=== PATIENT | male | born 1955 | race Caucasian/White ===

== ENCOUNTER 2018-08-12 15:27 | Inpatient (IN) | payer SELFPAY ==
[2018-08-12] MEDS ORDERED: Metoprolol Tartrate IV* 1 MG/ML 5 ML VIAL IV ONE (16:12)
[2018-08-12 16:54] LABS: ABS Basophils 0 10^3/ul (0-0.2); ABS Eosinophils 0.8 10^3/ul (0-0.6); ABS Lymphocytes 3.6 10^3/ul (1.0-4.8); ABS Neutrophils 8.9 10^3/ul (1.5-7.7); ABS Nucleated RBC 0 10^3/ul; Eosinophil % 5.8 %; Hematocrit 50 % (42-52); Hemoglobin 17.1 g/dl (14.0-18.0); Lymphocyte % 24.9 %; Mean Corpuscular HGB Conc 35 g/dl (31-36); Mean Corpuscular Hemoglobin 32 pg (27-31); Mean Corpuscular Volume 92 fL (80-94); Mean Platelet Volume 9.5 fL (7.4-10.4); Nucleated Red Blood Cells % 0.2; Platelet Count 405 10^3/ul (150-450); Red Blood Count 5.39 10^6/ul (4.00-5.40); Red Cell Distribution Width 14 % (10.5-15); White Blood Count 14.3 10^3/ul (3.5-10.8)
[2018-08-12 17:08] LABS: EGFR Non-African American 56.6 (>60)
[2018-08-12] MEDS ORDERED: Iodixanol* (CONTRAST) 320 MG/ML 100 ML SDV IV ONE (17:30)
--- NOTE | 2018-08-12 18:35 | ED ---
Hypertension - HPI Summary HPI Summary: A 62 year old male presents to [facility] with a chief complaint of high blood pressure since 08:00 08/12/18. 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 He states that he has not seen a Doctor in years but made an appointment at [facility] where his BP and EKG were abnormal and so he was referred here. He also c/o CP which he describes as tightness and SOB. His CP has been intermittent for a year. Pt was diagnosed with IBS and claims that his pain is alleviated with BMs. He denies back pain, lightheadedness, Fever, Chills, Erythema (eyes), Sore throat, Cough, Abdominal pain, Vomiting, Nausea, Dysuria, Hematuria, Myalgia, Edema, Rash and Dizziness. The patient denies a Hx of [place], cardiac disease or DM. - History of Current Complaint Chief Complaint: EDGeneral Stated Complaint: HIGH BLOOD PRESSURE Time Seen by Provider: 08/12/18 16:06 Hx Obtained From: Patient Onset/Duration: Started Hours Ago, Still Present Timing: Lasting Hours Associated Signs & Symptoms: Chest Pain, SOB - Allergies/Home Medications Allergies/Adverse Reactions: Allergies Allergy/AdvReac Type Severity Reaction Status Date / Time No Known Allergies Allergy Verified 01/14/15 12:34 Home Medications: Home Medications NK [No Home Medications Reported] 08/12/18 [History Confirmed 08/12/18] PMH/Surg Hx/FS Hx/Imm Hx Endocrine/Hematology History: Denies: Hx Diabetes Cardiovascular History: Reports: Hx Hypertension History: Denies: Hx Renal Disease Infectious Disease History: No Infectious Disease History: Denies: Traveled Outside the [place] in Last 30 Days - Family History Known Family History: Negative: Cardiac Disease, Diabetes - Social History Alcohol Use: None Substance Use Type: Reports: None Smoking Status (MU): Never Smoked Tobacco Review of Systems Negative: Fever, Chills Negative: Erythema Negative: Sore Throat Positive: Chest Pain Positive: Shortness Of Breath. Negative: Cough Negative: Abdominal Pain, Vomiting, Nausea Negative: hematuria Negative: Myalgia - back pain, Edema Negative: Rash Neurological: Negative - lightheadedness, dizziness All Other Systems Reviewed And Are Negative: Yes Physical Exam - Summary Physical Exam Summary: Constitutional: Well-developed, Well-nourished, Alert. (-) Distressed Skin: Warm, Dry HENT: Normocephalic; Atraumatic Eyes: Conjunctiva normal Neck: Musculoskeletal ROM normal neck. (-) JVD, (-) Stridor, (-) Tracheal deviation Cardio: Rhythm regular, rate normal, Heart sounds normal; Intact distal pulses; The pedal pulses are 2+ and symmetric. Radial pulses are 2+ and symmetric. (-) Murmur Pulmonary/Chest wall: Effort normal. (-) Respiratory distress, (-) Wheezes, (-) Rales Abd: Soft, (-) epigastric tenderness, (-) Distension, (-) Guarding, (-) Rebound Musculoskeletal: (-) Edema Lymph: (-) Cervical adenopathy Neuro: Alert, Oriented x3 Psych: Mood and affect Normal Triage Information Reviewed: Yes Vital Signs On Initial Exam: Initial Vitals Temp Pulse Resp BP Pulse Ox 98.9 F 98 20 233/142 97 08/12/18 15:35 08/12/18 15:35 08/12/18 15:35 08/12/18 15:35 08/12/18 15:35 Vital Signs Reviewed: Yes Diagnostics - Vital Signs Vital Signs Temp Pulse Resp BP Pulse Ox 08/12/18 18:03 86 16 193/132 93 08/12/18 18:01 87 24 198/133 91 08/12/18 18:00 86 13 95 08/12/18 17:33 79 18 195/131 95 08/12/18 17:03 93 16 214/145 93 08/12/18 17:00 96 22 92 08/12/18 16:59 14 08/12/18 15:35 98.9 F 98 20 233/142 97 - Laboratory Lab Results: Lab Results 08/12/18 08/12/18 08/12/18 Range/Units 16:39 16:39 16:39 WBC 14.3 H (3.5-10.8) 10^3/ul RBC 5.39 (4.00-5.40) 10^6/ul Hgb 17.1 (14.0-18.0) g/dl Hct 50 (42-52) % MCV 92 (80-94) fL MCH 32 H (27-31) pg MCHC 35 (31-36) g/dl RDW 14 (10.5-15) % Plt Count 405 (150-450) 10^3/ul MPV 9.5 (7.4-10.4) fL Neut % (Auto) 61.9 % Lymph % (Auto) 24.9 % Upton % (Auto) 7.1 % Eos % (Auto) 5.8 % Baso % (Auto) 0.3 % Absolute Neuts (auto) 8.9 H (1.5-7.7) 10^3/ul Absolute Lymphs (auto) 3.6 (1.0-4.8) 10^3/ul Absolute Monos (auto) 1.0 H (0-0.8) 10^3/ul Absolute Eos (auto) 0.8 H (0-0.6) 10^3/ul Absolute Basos (auto) 0 (0-0.2) 10^3/ul Absolute Nucleated RBC 0 10^3/ul Nucleated RBC % 0.2 Sodium 134 L (135-145) mmol/L Potassium 3.9 (3.5-5.0) mmol/L Chloride 98 L (101-111) mmol/L Carbon Dioxide 27 (22-32) mmol/L Anion Gap 9 (2-11) mmol/L BUN 24 (6-24) mg/dL Creatinine 1.29 H (0.67-1.17) mg/dL Est GFR ( Amer) 68.5 (>60) Est GFR (Non-Af Amer) 56.6 (>60) BUN/Creatinine Ratio 18.6 (8-20) Glucose 287 H (70-100) mg/dL Lactic Acid 1.6 (0.5-2.0) mmol/L Calcium 9.5 (8.6-10.3) mg/dL Total Bilirubin 0.50 (0.2-1.0) mg/dL AST 25 (13-39) U/L ALT 29 (7-52) U/L Alkaline Phosphatase 104 (34-104) U/L Troponin I 0.11 H* (<0.04) ng/mL Total Protein 7.3 (6.4-8.9) g/dL Albumin 4.2 (3.2-5.2) g/dL Globulin 3.1 (2-4) g/dL Albumin/Globulin Ratio 1.4 (1-3) Result Diagrams: 08/12/18 16:39 08/12/18 16:39 Lab Statement: Any lab studies that have been ordered have been reviewed, and results considered in the medical decision making process. - Radiology CXR Radiology Interpretation Completed By: Radiologist - Stigmata of potential obstructive lung disease. No acute intrathoracic process evident. ED physician has reviewed this imaging report. - CT chest/abd/pelvis CTA CT Interpretation Completed By: Radiologist Summary of CT Findings: Chest: 1. No pulmonary embolus. No dissection or aneurysm in the chest. 2. Mildly enlarged heart. Moderate coronary artery calcifications. 3. Small bilateral pleural effusions. Mild interstitial septal thickening. Some. of this may be fibrosis and some may be limited pulmonary edema. 4. Nonspecific mediastinal and hilar lymphadenopathy. Right hilar nodes measure. up to 19 mm short axis. Periaortic nodes measure up to 11 mm short axis on the. left. This may be benign or malignant. 5. Mild bronchial wall thickening. This may represent underlying inflammation. or infection, or be chronic. Abdomen and Pelvis: 1. Mild distended gallbladder with multiple stones. No definite CT evidence of. cholecystitis. 2. Minimal atherosclerosis without dissection or aneurysm. No significant. stenosis. 3. No other acute disease seen. As above. ED physician has reviewed this imaging report. - EKG 16:02 Cardiac Rate: Tachycardia - 101 bpm EKG Rhythm: Sinus Rhythm Summary of EKG Findings: LBBB, no STEMI Re-Evaluation - Re-Evaluation First Eval Re-Evaluation Time: 19:25 Change: Improved Comment: no active CP Hypertension Course/Dx - Course Course Of Treatment: A 62 year old male presents to [facility] with a chief complaint of high blood pressure since 08:00 08/12/18. 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 He states that he has not seen a Doctor in years but made an appointment at [facility] where his BP and EKG were abnormal and so he was referred here. He also c/o CP which he describes as tightness and SOB. His CP has been intermittent for a year. Pt was diagnosed with IBS and claims that his pain is alleviated with BMs. He denies back pain, lightheadedness, Fever, Chills, Erythema (eyes), Sore throat, Cough, Abdominal pain, Vomiting, Nausea, Dysuria, Hematuria, Myalgia, Edema, Rash and Dizziness. The patient denies a Hx of [place], cardiac disease or DM. His PE was unremarkable. His EKG showed sinus tachycardia at 101 bpm, LBBB and no STEMI. CXR impression: Stigmata of potential obstructive lung disease. No acute intrathoracic process evident. CTA Chest/abd/pelvis impression: Chest: 1. No pulmonary embolus. No dissection or aneurysm in the chest. 2. Mildly enlarged heart. Moderate coronary artery calcifications. 3. Small bilateral pleural effusions. Mild interstitial septal thickening. Some. of this may be fibrosis and some may be limited pulmonary edema. 4. Nonspecific mediastinal and hilar lymphadenopathy. Right hilar nodes measure. up to 19 mm short axis. Periaortic nodes measure up to 11 mm short axis on the. left. This may be benign or malignant. 5. Mild bronchial wall thickening. This may represent underlying inflammation. or infection, or be chronic. Abdomen and Pelvis: 1. Mild distended gallbladder with multiple stones. No definite CT evidence of. cholecystitis. 2. Minimal atherosclerosis without dissection or aneurysm. No significant. stenosis. 3. No other acute disease seen. As above. In the ED the patient had no active CP. Lab results were obtained and the patient had a troponin I of 0.11 twice. Dx: uncontrolled HTN, unspecified CP. The patient will be admitted to Dr. Zabala, hospitalist and is agreeable with this plan. - Diagnoses Provider Diagnoses: Uncontrolled hypertension, Chest pain, unspecified - Physician Notifications Discussed Care Of Patient With: Nicole Zabala Time Discussed With Above Provider: 19:30 Instructed by Provider To: Admit As Inpatient Discharge - Sign-Out/Discharge Documenting (check all that apply): Patient Departure - Admit - Discharge Plan Condition: Fair Disposition: ADMITTED TO [facility] - Attestation Statements Document Initiated by Scribe: Yes Documenting Scribe: Juan Sewell Provider For Whom Jermaineibe is Documenting (Include Credential): Alvarado Irene MD Scribe Attestation: Juan Ferguson, scribed for Alvarado Irene MD on 08/12/18 at 2147. Status of Scribe Document: Ready
[2018-08-12] MEDS ORDERED: Aspirin 81 mg CHEW TAB* 81 MG TAB.CHEW PO ONE (18:57)
[2018-08-12] MEDS ORDERED: Ondansetron INJ* 2 MG/ML VIAL IV PRN (20:48)
[2018-08-12] MEDS ORDERED: Al Hydrox/Mg Hydrox/Simet LIQ* 30 ML UDC PO PRN (20:48)
[2018-08-12] MEDS ORDERED: Acetaminophen TAB* 325 MG PO PRN (20:48)
[2018-08-12] MEDS ORDERED: Dextrose 50% Syringe 50 ML* 25 GM/50 ML SYRINGE IV PUSH PRN ×2 (20:51→20:52)
[2018-08-12] MEDS ORDERED: Metoprolol Tartrate TAB* 25 MG PO SCH (22:00)
[2018-08-12] MEDS: Heparin VIAL(*) 5000 UNITS/ML VIAL (FIVE THOUSAND) SUBCUT SCH (22:59)
[2018-08-13] MEDS: Heparin VIAL(*) 5000 UNITS/ML VIAL (FIVE THOUSAND) SUBCUT SCH ×3 (05:14→21:42)
[2018-08-13 06:31] LABS: ABS Basophils 0.4 10^3/ul (0-0.2); ABS Lymphocytes 3.1 10^3/ul (1.0-4.8); ABS Monocytes 0.9 10^3/ul (0-0.8); ABS Neutrophils 7.4 10^3/ul (1.5-7.7); ABS Nucleated RBC 0 10^3/ul; Eosinophil % 7.8 %; Hematocrit 48 % (42-52); Hemoglobin 16.6 g/dl (14.0-18.0); Lymphocyte % 24.1 %; Mean Corpuscular HGB Conc 34 g/dl (31-36); Mean Corpuscular Hemoglobin 32 pg (27-31); Mean Corpuscular Volume 92 fL (80-94); Mean Platelet Volume 9.4 fL (7.4-10.4); Nucleated Red Blood Cells % 0.1; Platelet Count 395 10^3/ul (150-450); Red Blood Count 5.25 10^6/ul (4.00-5.40); Red Cell Distribution Width 15 % (10.5-15); White Blood Count 12.9 10^3/ul (3.5-10.8)
[2018-08-13 06:38] LABS: INR 1.03 (0.77-1.02)
[2018-08-13] MEDS: Insulin LISPRO* 1 UNITS UNIT SUBCUT SCH ×6 (08:18→18:11)
[2018-08-13] MEDS ORDERED: Insulin LISPRO* 1 UNITS UNIT SUBCUT ONE (08:36)
[2018-08-13] MEDS ORDERED: Dextrose 50% Syringe 50 ML* 25 GM/50 ML SYRINGE IV PUSH PRN (08:36)
--- NOTE | 2018-08-13 08:39 | ECHO ---
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 Left Ventricle: The left ventricular chamber size is normal. Moderate concentric left ventricular hypertrophy is observed. There is global hypokinesis of the left ventricle with minor regional variation. There is severely decreased left ventricular systolic function. The estimated ejection fraction is 20-25%. There is a left ventricular septal wall motion abnormality observed, possibly due to the presence of a left bundle branch block. Abnormal left ventricular diastolic function is observed. The left ventricular diastolic filling pattern is restrictive. Left Atrium: The left atrium is moderately dilated. Right Ventricle: The right ventricular cavity size is normal. The right ventricular global systolic function is mildly reduced. Aortic Valve: The aortic valve is trileaflet. Systolic excursion of the aortic valve is normal. There is aortic annular calcification.that is mild There is a trace of aortic regurgitation. There is no evidence of aortic stenosis. Mitral Valve: Mild mitral annular calcification present. The mitral valve leaflets do not appear thickened. There is mild mitral regurgitation. There is no evidence of mitral stenosis. Tricuspid Valve: The tricuspid valve leaflets are normal. There is no evidence of tricuspid valve regurgitation. Unable to estimate the right ventricular systolic pressure. Pulmonic Valve: The pulmonic valve appears normal. There is no evidence of pulmonic regurgitation. Pericardium: There is no significant pericardial effusion. Aorta: The aortic root appears normal. There is no dilatation of the aortic arch. Pulmonary Artery: The main pulmonary artery is not well visualized. Venous: The inferior vena cava is dilated. There is less than 50% respiratory change in the inferior vena cava dimension. Conclusions The left ventricular chamber size is normal. Moderate concentric left ventricular hypertrophy is observed. There is global hypokinesis of the left ventricle with minor regional variation. There is severely decreased left ventricular systolic function. There is a left ventricular septal wall motion abnormality observed, possibly due to the presence of a left bundle branch block. The estimated ejection fraction is 20-25%. The left atrium is moderately dilated. The left ventricular diastolic filling pattern is severe restrictive. The right ventricular cavity size is normal. The right ventricular global systolic function is mildly reduced. No functionally significant valvular abnormalities noted Unable to estimate the right ventricular systolic pressure. None prior for comparison at time of interpretation Measurements Name Value Normal Range RVDdMajor (2D) 2.8 cm (2.2 - 4.4) IVSd (2D) 1.6 cm (0.6 - 1) LVPWd (2D) 1.6 cm (0.6 - 1) LVIDd (2D) 5.4 cm (3.6 - 5.4) LVIDs (2D) 4.4 cm - Aortic Annulus 2.4 cm (1.4 - 2.6) Ao root diameter (2D) 3 cm (2.1 - 3.5) Ascending Ao 3.4 cm (2.1 - 3.4) Aortic arch 3.4 cm (1.8 - 3.4) LA dimension (AP) 2D 5.4 cm (2.3 - 3.8) LAd ISD 4CH 6.2 cm (2.9 - 5.3) LA ISD 4CH W 5.6 cm (2.5 - 4.5) Name Value Normal Range LA ESV BP (A/L) index 46 ml/m2 - Name Value Normal Range MV E-wave Vmax 1.5 m/sec - MV deceleration time 119 msec - MV A-wave Vmax 0.4 m/sec - MV E:A ratio 3.9 ratio - LV septal e' Vmax 0.03 m/sec - LV lateral e' Vmax 0.09 m/sec - LV E:e' septal ratio 49 ratio - LV E:e' lateral ratio 17 ratio - Name Value Normal Range AV Vmax 0.6 m/sec - AV VTI 8 cm - AV peak gradient 1 mmHg - AV mean gradient 1 mmHg - LVOT Vmax 0.8 m/sec - LVOT VTI 12 cm - LVOT peak gradient 2.6 mmHg - LVOT mean gradient 1 mmHg - RAJ Vmax 0.4 m/sec - Name Value Normal Range RAP 8 mmHg - IVC diameter 2.2 cm - Name Value Normal Range PV Vmax 0.5 m/sec - PV peak gradient 1 mmHg -
--- NOTE | 2018-08-13 09:16 | HP ---
CC: [facility].* HISTORY AND PHYSICAL: DATE OF ADMISSION: 08/12/18 TIME OF EVALUATION: 2099 PRIMARY CARE PHYSICIAN: [facility]. CHIEF COMPLAINT: Elevated blood pressure and abnormal EKG. HISTORY OF PRESENT ILLNESS: This is a 62-year-old male who has not seen a primary care physician in more than 15 years, who was told that he has prediabetes and hypertension, not on any medications, who went in to [place] today to get a work physical when they noticed his blood pressure was very elevated and he had a left bundle-branch block on the EKG. They recommended that he go to the emergency room for further evaluation. The patient denies having any chest pain. No shortness of breath. He does state that he feels like his reflux at night gets really bad when he lies down and feels like he cannot get enough air in. He does admit to snoring as well. He denies any lower extremity swelling. No nausea, vomiting, or diarrhea. No abdominal pain. No urinary symptoms. He has lost about 30 pounds over the past 5 years, mostly intentional. Otherwise, review of systems is negative. In the emergency room, the patient had labs, imaging. He was given 324 of aspirin and 5 mg of Lopressor and referred to the hospitalist service for further evaluation. PAST MEDICAL HISTORY: 1. Prediabetes. 2. Hypertension, not on medications. 3. Irritable bowel syndrome. MEDICATIONS: None. ALLERGIES: No known drug allergies. FAMILY HISTORY: His mother from a stroke. She was a heavy smoker. Father when he was 87, complications from a stroke. No family history of sudden or early coronary disease. 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 No history of smoking or illicit drug use. Rare alcohol use. His healthcare proxy is his son , Venkat, who is at the bedside. Code status is full code. REVIEW OF SYSTEMS: A 14-point review of systems as mentioned in HPI, otherwise negative. PHYSICAL EXAMINATION GENERAL: No acute distress, resting comfortably with his son at the bedside. VITAL SIGNS: Temperature 98.4, pulse rate 85, respiratory rate 16, oxygen saturation 94% on room air, blood pressure 196/112. HEENT: Head normocephalic. Pupils equal and reactive. Oropharynx: Mucous membranes moist. NECK: Supple. No lymphadenopathy. No nuchal rigidity. RESPIRATORY: Clear to auscultation. No wheezes, rhonchi, or rales. CARDIAC: Regular rate and rhythm. Soft systolic murmur heard throughout. No carotid bruits. ABDOMEN: Soft, nontender, nondistended. EXTREMITIES: No clubbing, cyanosis or edema. +1 DPs. NEUROLOGIC: Alert and oriented x3. No gross focal neurologic deficits. LABORATORY DATA: White count 14.3, hemoglobin 17.1, hematocrit 50, platelets 405. Sodium 134, potassium 3.9, chloride 98, bicarb 27. BUN 24, creatinine 1.29. Glucose 287. Troponin 0.11 x2. RADIOGRAPHIC DATA: Chest x-ray, stigmata of potential obstructive lung disease , no intrathoracic process evident. Chest, abdomen, and pelvis CTA, no pulmonary embolus, no dissection or aneurysm, mildly enlarged heart, moderate coronary artery calcifications, small bilateral pleural effusions, mild interstitial septal thickening, nonspecific mediastinal and hilar lymphadenopathy, mild bronchial wall thickening. EKG showed sinus tach with a rate of 101 and left bundle-branch block. ASSESSMENT: This is a 62-year-old male who has not seen a primary care physician in over 15 years, who went for a work physical, found to have poorly- controlled blood pressure and an abnormal EKG. 1. Abnormal EKG. Assessment: The patient with left a bundle-branch block. No prior EKGs to compare to. He does have an elevated troponin that has stayed flat. He has no chest pain. He appears to have orthopnea. Concern for metabolic syndrome and significant coronary artery disease in this patient. I spoke with Dr. Torres regarding further workup for him. The plan will be to keep him n.p.o. after midnight. She will sign out to Dr. Ramachandran and Dr. Mai to determine if a stress test versus going to the petroleum refinery laborer is appropriate. We will continue him on a baby aspirin, start him on metoprolol for now to try to slowly lower his blood pressure and we will continue to trend his troponin and check a lipid panel in the morning. We will also check a BNP and order an echocardiogram. 2. Poorly-controlled hypertension. Assessment: This could be considered hypertensive urgency with his acute kidney injury. I suspect this is chronic, longstanding. Plan: We will slowly lower this with initiating metoprolol and adding additional agents gradually. 3. Acute kidney injury. Assessment: The patient with a bump in his creatinine. I suspect this is related to his poorly-controlled blood pressure and diabetes. Plan: We will renally dose his medications. We will hold off on starting an ALICIA inhibitor and repeat his labs in the morning. 4. Hyperglycemia. Assessment: The patient states he was diagnosed with prediabetes. Plan: We will check a hemoglobin A1c, start him on lispro sliding scale and lantus. 5. Orthopnea. Assessment: Most likely, he could be having episodes of congestive heart failure at night versus obstructive sleep apnea versus indigestion, most likely cardiac-related. We will order an overnight pulse ox to monitor oxygen levels. He will need a formal sleep study as an outpatient. 6. FEN. Diabetic diet. N.p.o. after midnight. 7. DVT prophylaxis. The patient scores moderate risk. We will place him on heparin subcutaneous t.i.d. 8. Code status: Full code. PATIENT TIME: Greater than 60 minutes doing the history and physical, more than half the time spent in direct patient contact. [id number] #: [id number] PIO
--- NOTE | 2018-08-13 09:17 | CONSULT ---
Subjective Date of Service: 08/13/18 Interval History: Admission Date: 08/12/18 Consult date 08/13/2018 Service: Hospitalist PMD: None CC: LBBB, elevated BP Reason for consult: Severe systolic heart failure HISTORY OF PRESENT ILLNESS: Mr. Toussaint is a 62 year old man found at a work physical to have a LBBB not previously known and severely elevated BP. He was transferred to [facility] for further evaluation. He was found with a detectable troponin without rise and fall to suggest ACS, LBBB, and severe cardiomyopathy LVEF 20-25%. 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 He lives near [place], [place]. The last several months he has had chest tightness when laying down at night cannot get enough air, at times relieved with prilosec. He did not have this symptom with exertion. He has had no palpitations, syncope or significant edema. 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 He laid flat in his bed for 5 minutes on room air and 02 saturations were maintained at 96%. He denies any bleeding problems, blood transfusion, allergies or kidney issues. PMhx: HTN: He had seen Dr. Byers for cardiology at least 3-4 years ago and had been on procardia and hyzaar. Because of work scheduling, he missed appointments and has not seen a doctor or taken any medications in years. He previously had a PCP through [facility], newly diagnosed Obesity Sleep apnea unable to tolerate CPAP MEDICATIONS: None. ALLERGIES: No known drug allergies. FAMILY HISTORY: His mother from a stroke. She was a heavy smoker. Father when he was 87, complications from a stroke. 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 No history of smoking, excessive alcohol or drug use use. His healthcare proxy is his son, Venkat. , Code status is full code. Medications Active Medications: Acetaminophen (Tylenol Tab*) 650 mg PO Q4H PRN PRN Reason: FEVER/PAIN Al Hydrox/Mg Hydrox/Simethicone (Maalox Plus*) 30 ml PO Q6H PRN PRN Reason: INDIGESTION Aspirin (Aspirin 81 Mg Chew Tab*) 81 mg PO DAILY [facility] Atorvastatin Calcium (Lipitor*) 80 mg PO 2100 [facility] Carvedilol (Coreg Tab*) 12.5 mg PO BID [facility] Dextrose (D50w Syringe 50 Ml*) 12.5 gm IV PUSH .FOR FS < 60 - SS PRN PRN Reason: FS < 60 Heparin Sodium (Porcine) (Heparin Vial(*)) 5,000 units SUBCUT Q8HR [facility] Last Admin: 08/13/18 05:14 Dose: Not Given Insulin Human Lispro (Humalog*) 0 units SUBCUT AC [facility]; Protocol Last Admin: 08/13/18 08:18 Dose: Not Given Insulin Human Lispro (Humalog*) 0 units SUBCUT AC [facility]; Protocol Last Admin: 08/13/18 08:56 Dose: Not Given Ondansetron HCl (Zofran Inj*) 4 mg IV Q4H PRN PRN Reason: NAUSEA/VOMITING Home Medications: NK [No Home Medications Reported] 08/12/18 [History Confirmed 08/12/18] Review of Systems - Measurements Intake and Output: Intake and Output Last 24 Hours 08/11/18 08/12/18 08/13/18 08/14/18 06:59 06:59 06:59 06:59 Intake Total 400 0 Balance 400 0 Weight 234 lb 12.8 oz Intake: Oral 400 0 Other: Estimated Void Medium # Bowel Movements 0 # Voids 2 - Review of Systems Constitutional Symptoms: Positive: Fatigue Negative: Weight Gain, Weight Loss Dermatology: Negative: Rash, Skin Lesions HEENT: Negative: Change in Hearing, Vertigo Eyes: Negative: Change in Vision, Double Vision Thyroid: Negative: Palpitations, Primary Hypothyroidism, Primary Hyperthyroidism, Weight Loss, Weight Gain Pulmonary: Negative: Sputum, Hemoptysis, Wheezing, Respiratory Distress, Home Oxygen Cardiology: Positive: Chest Pain Negative: Swelling of Ankles, Peripheral Vascular Dis, Edema, Faintness, Syncope, Claudication, Paroxysmal Nocturnal Dyspnea Gastroenterology: Negative: Blood in Stools, Change in Bowel Habits, Haematemesis, Melena Genital - Urinary: Negative: Dysuria, Hematuria Musculoskeletal: Negative: Joint Pain, Joint Stiffness Endocrinology: Positive: Obesity, Diabetes Negative: Polydipsia, Polyuria, Pituitary Disease Hematologic/Lymphatic: Negative: Anemia, Hx Leukemia, Hx Lymphoma, Use of Anticoagulant, Use of Antiplatelet Drugs Neurology: Negative: Diplopia, Dizziness, Change in Balancing, Change in Coordination, Change in Memory, Change in Speech, Change in Sphincter Function, Change in Walking, Hx of Stroke\TIA, Hx Seizures Psychiatry: Negative: Unusual Anxiety, Suicidal Ideation Allergic/Immunologic: Negative: Hx Anaphylaxis, Hx Angioedema, Hx HIV, Immunocompromise Review of Systems Statement: All other review of systems negative, unless stated above. Objective Vital Signs: Temp Pulse Resp BP Pulse Ox 98.6 F 88 20 174/108 98 08/13/18 03:50 08/13/18 03:50 08/13/18 03:50 08/13/18 03:50 08/13/18 03:50 Oxygen Devices in Use Now: None Appearance: nad, pleasant Ears/Nose/Mouth/Throat: Clear Oropharnyx, Mucous Membranes Moist Neck: Trachea Midline, - - uncertain jvp Respiratory: Symmetrical Chest Expansion and Respiratory Effort, - - R basilar rales Cardiovascular: RRR, No Edema, - - no significant murmur Abdominal: - - soft, obese, non-tender Extremities: No Edema, No Clubbing, Cyanosis Skin: No Rash or Ulcers Neurological: Alert and Oriented x 3 Laboratory Results: 08/13/18 06:17 08/13/18 06:17 INR (Anticoag Therapy) 1.03 (0.77-1.02) H 08/13/18 06:17 Total Bilirubin 0.50 mg/dL (0.2-1.0) 08/12/18 16:39 AST 25 U/L (13-39) 08/12/18 16:39 ALT 29 U/L (7-52) 08/12/18 16:39 Alkaline Phosphatase 104 U/L (34-104) 08/12/18 16:39 B-Natriuretic Peptide 461 pg/mL (<=100) H 08/12/18 16:39 Total Protein 7.3 g/dL (6.4-8.9) 08/12/18 16:39 Albumin 4.2 g/dL (3.2-5.2) 08/12/18 16:39 Globulin 3.1 g/dL (2-4) 08/12/18 16:39 Albumin/Globulin Ratio 1.4 (1-3) 08/12/18 16:39 Triglycerides 265 mg/dL 08/13/18 06:17 Cholesterol 176 mg/dL 08/13/18 06:17 LDL Cholesterol 90 mg/dL 08/13/18 06:17 HDL Cholesterol 32.8 mg/dL 08/13/18 06:17 08/12/18 08/12/18 08/12/18 16:39 19:04 22:22 Troponin I 0.11 H* 0.11 H* 0.11 H* Diagnostic Imaging: RADIOGRAPHIC DATA: Chest, abdomen, and pelvis CTA 08/12/2018 no pulmonary embolus, no dissection or aneurysm, mildly enlarged heart, moderate coronary artery calcifications, small bilateral pleural effusions, mild interstitial septal thickening, nonspecific mediastinal and hilar lymphadenopathy, mild bronchial wall thickening. EKG showed sinus tach with a rate of 101 and left bundle-branch block. Echo 08/13/2018: Moderate LVH, LVEF 20-25%, moderate LA dilation, restrictive filling pattern EKG Data: EKG on admission: NSR, LAE, LBBB QRS > 150 ms Assessment/Plan 1. Systolic HF, LVEF 20-25% - mildly decompensated - NYHA Class II - ruled out for ACS 2. LBBB 3. Obesity 4. HTN, uncontrolled 5. DM, newly diagnosed, uncontrolled 6. Sleep apnea, unable to tolerate CPAP - Continue aspirin 81 mg po daily - Start lipitor 80 mg po daily (ordered) - Change metoprolol to coreg 12.5 mg po bid (ordered) - Give 10 mg IV lasix with 20 meq K (ordered). May not need standing loop diuretic dose with better BP control - Will re-evaluate BP after above and start enalapril bid when appropriate with [facility] plans if LVEF does not recover to change to entresto as an outpatient - Will start aldactone when appropriate - DM management as per Primary service - Counseled on weight loss and heart healthy diet - Continue DVT prophylaxis - Advised he would benefit from a retrial of CPAP, possibly with different device - Plan on cardiac catheterization with intent for revascularization. Risks, benefits and alternatives discussed and patient wishes to proceed. Discussed with Dr. 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 Further recommendations pending above Thank you for allowing me to participate in the cardiovascular care of this patient. Please do not hesitate to contact me with questions to concerns.
--- NOTE | 2018-08-13 09:19 | CONSULT ---
Medications Active Medications: Acetaminophen (Tylenol Tab*) 650 mg PO Q4H PRN PRN Reason: FEVER/PAIN Al Hydrox/Mg Hydrox/Simethicone (Maalox Plus*) 30 ml PO Q6H PRN PRN Reason: INDIGESTION Aspirin (Aspirin 81 Mg Chew Tab*) 81 mg PO DAILY [facility] Atorvastatin Calcium (Lipitor*) 80 mg PO 2100 [facility] Carvedilol (Coreg Tab*) 12.5 mg PO BID [facility] Dextrose (D50w Syringe 50 Ml*) 12.5 gm IV PUSH .FOR FS < 60 - SS PRN PRN Reason: FS < 60 Heparin Sodium (Porcine) (Heparin Vial(*)) 5,000 units SUBCUT Q8HR [facility] Last Admin: 08/13/18 05:14 Dose: Not Given Insulin Human Lispro (Humalog*) 0 units SUBCUT AC [facility]; Protocol Last Admin: 08/13/18 08:18 Dose: Not Given Insulin Human Lispro (Humalog*) 0 units SUBCUT AC [facility]; Protocol Last Admin: 08/13/18 08:56 Dose: Not Given Ondansetron HCl (Zofran Inj*) 4 mg IV Q4H PRN PRN Reason: NAUSEA/VOMITING Home Medications: NK [No Home Medications Reported] 08/12/18 [History Confirmed 08/12/18] Review of Systems - Measurements Intake and Output: Intake and Output Last 24 Hours 08/11/18 08/12/18 08/13/18 08/14/18 06:59 06:59 06:59 06:59 Intake Total 400 0 Balance 400 0 Weight 234 lb 12.8 oz Intake: Oral 400 0 Other: Estimated Void Medium # Bowel Movements 0 # Voids 2 - Review of Systems Review of Systems Statement: All other review of systems negative, unless stated above. Objective Vital Signs: Temp Pulse Resp BP Pulse Ox 98.6 F 98 14 184/112 96 08/13/18 03:50 08/13/18 09:18 08/13/18 09:18 08/13/18 09:18 08/13/18 09:18 Oxygen Devices in Use Now: None Laboratory Results: 08/13/18 06:17 08/13/18 06:17 INR (Anticoag Therapy) 1.03 (0.77-1.02) H 08/13/18 06:17 Total Bilirubin 0.50 mg/dL (0.2-1.0) 08/12/18 16:39 AST 25 U/L (13-39) 08/12/18 16:39 ALT 29 U/L (7-52) 08/12/18 16:39 Alkaline Phosphatase 104 U/L (34-104) 08/12/18 16:39 B-Natriuretic Peptide 461 pg/mL (<=100) H 08/12/18 16:39 Total Protein 7.3 g/dL (6.4-8.9) 08/12/18 16:39 Albumin 4.2 g/dL (3.2-5.2) 08/12/18 16:39 Globulin 3.1 g/dL (2-4) 08/12/18 16:39 Albumin/Globulin Ratio 1.4 (1-3) 08/12/18 16:39 Triglycerides 265 mg/dL 08/13/18 06:17 Cholesterol 176 mg/dL 08/13/18 06:17 LDL Cholesterol 90 mg/dL 08/13/18 06:17 HDL Cholesterol 32.8 mg/dL 08/13/18 06:17 08/12/18 08/12/18 08/12/18 16:39 19:04 22:22 Troponin I 0.11 H* 0.11 H* 0.11 H*
[2018-08-13] MEDS: Aspirin 81 mg CHEW TAB* 81 MG TAB.CHEW PO SCH (09:35)
[2018-08-13] MEDS: Carvedilol TAB* 25 MG PO SCH ×2 (09:43→20:23)
[2018-08-13] MEDS: Atorvastatin* 80 MG TAB PO SCH ×2 (09:44→20:23)
[2018-08-13] MEDS ORDERED: Furosemide IV* 10 MG/ML 2 ML VIAL (20 MG) IV ONE (11:19)
[2018-08-13] MEDS ORDERED: Potassium Chlor TAB* 20 MEQ TAB.ER PO ONE (11:20)
--- NOTE | 2018-08-13 14:32 | PN ---
Subjective Date of Service: 08/13/18 Interval History: Pt feels well. Went to PCP because he failed his work physical due to elevated BP. 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 Objective Active Medications: Acetaminophen (Tylenol Tab*) 650 mg PO Q4H PRN PRN Reason: FEVER/PAIN Al Hydrox/Mg Hydrox/Simethicone (Maalox Plus*) 30 ml PO Q6H PRN PRN Reason: INDIGESTION Aspirin (Aspirin 81 Mg Chew Tab*) 81 mg PO DAILY [facility] Last Admin: 08/13/18 09:35 Dose: 81 mg Atorvastatin Calcium (Lipitor*) 80 mg PO 2100 [facility] Last Admin: 08/13/18 09:44 Dose: 80 mg Carvedilol (Coreg Tab*) 12.5 mg PO BID [facility] Last Admin: 08/13/18 09:43 Dose: 12.5 mg Dextrose (D50w Syringe 50 Ml*) 12.5 gm IV PUSH .FOR FS < 60 - SS PRN PRN Reason: FS < 60 Heparin Sodium (Porcine) (Heparin Vial(*)) 5,000 units SUBCUT Q8HR [facility] Last Admin: 08/13/18 14:18 Dose: 5,000 units Insulin Human Lispro (Humalog*) 0 units SUBCUT AC [facility]; Protocol Last Admin: 08/13/18 14:13 Dose: 1 unit Insulin Human Lispro (Humalog*) 0 units SUBCUT AC [facility]; Protocol Last Admin: 08/13/18 14:16 Dose: 12 units Ondansetron HCl (Zofran Inj*) 4 mg IV Q4H PRN PRN Reason: NAUSEA/VOMITING Vital Signs - 8 hr 08/13/18 08/13/18 08/13/18 07:47 08:00 09:18 Temperature 98.3 F Pulse Rate 87 98 Respiratory 16 19 14 Rate Blood Pressure 181/110 184/112 (mmHg) O2 Sat by Pulse 98 96 Oximetry 08/13/18 11:29 Temperature 98.1 F Pulse Rate 85 Respiratory 18 Rate Blood Pressure 161/102 (mmHg) O2 Sat by Pulse 93 Oximetry Oxygen Devices in Use Now: None Appearance: 62 yo M in nAD, aAOx3 Eyes: No Scleral Icterus, PERRLA Ears/Nose/Mouth/Throat: NL Teeth, Lips, Gums, Mucous Membranes Moist Neck: NL Appearance and Movements; NL JVP, Trachea Midline Respiratory: Symmetrical Chest Expansion and Respiratory Effort, Clear to Auscultation Cardiovascular: NL Sounds; No Murmurs; No JVD, RRR Abdominal: NL Sounds; No Tenderness; No Distention Lymphatic: No Cervical Adenopathy Extremities: No Edema, No Clubbing, Cyanosis Skin: No Rash or Ulcers, No Nodules or Sclerosis Neurological: Alert and Oriented x 3, NL Muscle Strength and Tone Result Diagrams: 08/13/18 06:17 08/13/18 06:17 Additional Lab and Data: Lab Results 08/12/18 08/12/18 08/12/18 Range/Units 16:39 16:39 16:39 WBC 14.3 H (3.5-10.8) 10^3/ul RBC 5.39 (4.00-5.40) 10^6/ul Hgb 17.1 (14.0-18.0) g/dl Hct 50 (42-52) % MCV 92 (80-94) fL MCH 32 H (27-31) pg MCHC 35 (31-36) g/dl RDW 14 (10.5-15) % Plt Count 405 (150-450) 10^3/ul MPV 9.5 (7.4-10.4) fL Neut % (Auto) 61.9 % Lymph % (Auto) 24.9 % [place] % (Auto) 7.1 % Eos % (Auto) 5.8 % Baso % (Auto) 0.3 % Absolute Neuts (auto) 8.9 H (1.5-7.7) 10^3/ul Absolute Lymphs (auto) 3.6 (1.0-4.8) 10^3/ul Absolute Monos (auto) 1.0 H (0-0.8) 10^3/ul Absolute Eos (auto) 0.8 H (0-0.6) 10^3/ul Absolute Basos (auto) 0 (0-0.2) 10^3/ul Absolute Nucleated RBC 0 10^3/ul Nucleated RBC % 0.2 Sodium 134 L (135-145) mmol/L Potassium 3.9 (3.5-5.0) mmol/L Chloride 98 L (101-111) mmol/L Carbon Dioxide 27 (22-32) mmol/L Anion Gap 9 (2-11) mmol/L BUN 24 (6-24) mg/dL Creatinine 1.29 H (0.67-1.17) mg/dL Est GFR ( Amer) 68.5 (>60) Est GFR (Non-Af Amer) 56.6 (>60) BUN/Creatinine Ratio 18.6 (8-20) Glucose 287 H (70-100) mg/dL Lactic Acid 1.6 (0.5-2.0) mmol/L Calcium 9.5 (8.6-10.3) mg/dL Total Bilirubin 0.50 (0.2-1.0) mg/dL AST 25 (13-39) U/L ALT 29 (7-52) U/L Alkaline Phosphatase 104 (34-104) U/L Troponin I 0.11 H* (<0.04) ng/mL Total Protein 7.3 (6.4-8.9) g/dL Albumin 4.2 (3.2-5.2) g/dL Globulin 3.1 (2-4) g/dL Albumin/Globulin Ratio 1.4 (1-3) Assess/Plan/Problems-Billing Assessment: 62 yo M with h/o DM, HTN-not treated x 15 years presents sent from PCP with SBP 233 and LBBB on EKG - Patient Problems (1) Hypertensive urgency Comment: lopressor switched to Coreg by cardiology started hydralazine IV prn (2) DM type 2 (diabetes mellitus, type 2) Comment: started on Lantus and ISS Will likley be able to go home on metformin and glipizide will start low dose glipizide now (3) Elevated troponin Comment: likely demand ischemia, but underlying CAD suspected Started on lipitor echo shows EF 20%, restrictive pattern for cath tomorrow (4) LBBB (left bundle branch block) Comment: see above (5) Mediastinal lymphadenopathy Comment: nonspecific, to f/u as outpatient, pt asymptomatic from infectious standpoint (6) DVT prophylaxis Comment: HSQ Status and Disposition: inpatient
[2018-08-13] MEDS: glipiZIDE TAB* 5 MG PO SCH (15:34)
[2018-08-13] MEDS: Insulin GLARGINE(*) 1 UNITS UNIT SUBCUT SCH (15:36)
[2018-08-13] MEDS ORDERED: diPHENhydraMINE PO* 25 MG PO PRN (17:22)
[2018-08-13] MEDS ORDERED: Diazepam TAB(*) 5 MG PO PRN (17:22)
[2018-08-13] MEDS ORDERED: Enalapril TAB* 5 MG PO SCH (21:00)
[2018-08-13] MEDS: hydrALAZINE IV* 20 MG/ML VIAL IV SLOW PU PRN (21:55)
[2018-08-14] MEDS: hydrALAZINE IV* 20 MG/ML VIAL IV SLOW PU PRN (03:26)
[2018-08-14] MEDS: Heparin VIAL(*) 5000 UNITS/ML VIAL (FIVE THOUSAND) SUBCUT SCH ×3 (05:17→20:44)
[2018-08-14] MEDS ORDERED: NS 0.9% 1000 ML* 1,000 ML IV SCH (06:00)
[2018-08-14] MEDS ORDERED: Magnesium Sulfate 2 GM IV* 2 GM/50 ML BAG IVPB ONE (07:26)
[2018-08-14] MEDS: Insulin LISPRO* 1 UNITS UNIT SUBCUT SCH ×6 (07:36→17:27)
[2018-08-14 07:40] LABS: EGFR Non-African American 66.7 (>60)
[2018-08-14] MEDS: Aspirin 81 mg CHEW TAB* 81 MG TAB.CHEW PO SCH (07:49)
[2018-08-14] MEDS: Carvedilol TAB* 25 MG PO SCH (07:49)
[2018-08-14] MEDS: glipiZIDE TAB* 5 MG PO SCH (07:53)
[2018-08-14] MEDS ORDERED: Midazolam* 1 MG/ML 10 ML VIAL (10 MG) ONE (08:08)
[2018-08-14] MEDS ORDERED: VERAPAMIL 2.5 MG/ML 2 ML VIAL ** 5 mg/2 ml ONE (08:08)
[2018-08-14] MEDS ORDERED: fentaNYL* 50 MCG/ML 2 ML VIAL (100 MCG VIAL) ONE (08:08)
[2018-08-14] MEDS ORDERED: Heparin(*) 1000 UNIT/ML 10 ML VIAL CATH LAB IV ONE (08:08)
[2018-08-14] MEDS ORDERED: nitroGLYCERIN DRIP* 25,000 MCG/250 ML BTL ONE (08:09)
[2018-08-14] MEDS ORDERED: Lidocaine 1% INJ* 10 MG/ML 30 ML SDV ONE (08:09)
[2018-08-14] MEDS ORDERED: Iohexol 350 (CONTRAST) 200 ML MDV IV ONE (08:09)
[2018-08-14] MEDS ORDERED: Heparin 2 UNITS/ML IVPREMIX* 2,000 ML IV ONE (08:09)
[2018-08-14] MEDS ORDERED: Enalapril TAB* 5 MG PO SCH ×2 (09:00→21:00)
[2018-08-14] MEDS: Clopidogrel TAB* 75 MG PO SCH (12:21)
[2018-08-14] MEDS ORDERED: glipiZIDE TAB* 5 MG PO ONE (13:02)
--- NOTE | 2018-08-14 14:34 | PN ---
Subjective Date of Service: 08/14/18 Interval History: Pt feels well.Seen post cath with shown 65% stenosis in mid circ and distal disease in PDA, did not get a stent Objective Active Medications: Acetaminophen (Tylenol Tab*) 650 mg PO Q4H PRN PRN Reason: FEVER/PAIN Al Hydrox/Mg Hydrox/Simethicone (Maalox Plus*) 30 ml PO Q6H PRN PRN Reason: INDIGESTION Aspirin (Aspirin 81 Mg Chew Tab*) 81 mg PO DAILY [facility] Last Admin: 08/14/18 07:49 Dose: 81 mg Atorvastatin Calcium (Lipitor*) 80 mg PO 2100 [facility] Last Admin: 08/13/18 20:23 Dose: 80 mg Carvedilol (Coreg Tab*) 12.5 mg PO BID [facility] Last Admin: 08/14/18 07:49 Dose: 12.5 mg Clopidogrel Bisulfate (Plavix Tab*) 75 mg PO DAILY [facility] Last Admin: 08/14/18 12:21 Dose: 75 mg Dextrose (D50w Syringe 50 Ml*) 12.5 gm IV PUSH .FOR FS < 60 - SS PRN PRN Reason: FS < 60 Diazepam (Valium Tab(*)) 2.5 mg PO ONCE PRN PRN Reason: 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 Stop: 08/14/18 17:21 Diphenhydramine HCl (Benadryl Po*) 25 mg PO ONCE PRN PRN Reason: 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 Stop: 08/14/18 17:21 Enalapril Maleate (Vasotec Tab*) 5 mg PO BID [facility] Last Admin: 08/14/18 07:49 Dose: 5 mg Glipizide (Glucotrol Tab*) 2.5 mg PO DAILY [facility] Heparin Sodium (Porcine) (Heparin Vial(*)) 5,000 units SUBCUT Q8HR [facility] Last Admin: 08/14/18 14:07 Dose: 5,000 units Hydralazine HCl (Apresoline Iv*) 5 mg IV SLOW PU Q6H PRN PRN Reason: BLOOD PRESSURE Last Admin: 08/14/18 03:26 Dose: 5 mg Insulin Glargine (Lantus(*)) 10 units SUBCUT Q24H [facility] Last Admin: 08/13/18 15:36 Dose: 10 units Insulin Human Lispro (Humalog*) 0 units SUBCUT AC [facility]; Protocol Last Admin: 08/14/18 14:07 Dose: 2 unit Insulin Human Lispro (Humalog*) 0 units SUBCUT AC [facility]; Protocol Last Admin: 08/14/18 14:08 Dose: 6 units Ondansetron HCl (Zofran Inj*) 4 mg IV Q4H PRN PRN Reason: NAUSEA/VOMITING Vital Signs - 8 hr 08/14/18 08/14/18 08/14/18 07:19 07:29 08:00 Temperature 98.5 F Pulse Rate 93 Respiratory 16 16 17 Rate Blood Pressure 164/101 (mmHg) O2 Sat by Pulse 96 Oximetry 08/14/18 08/14/18 08/14/18 10:17 10:28 11:21 Temperature 98.2 F Pulse Rate 74 75 86 Respiratory 18 15 16 Rate Blood Pressure 139/84 136/91 (mmHg) O2 Sat by Pulse 94 97 98 Oximetry Oxygen Devices in Use Now: None Appearance: 62 yo M in NAD, AAOx3 Eyes: No Scleral Icterus, PERRLA Ears/Nose/Mouth/Throat: NL Teeth, Lips, Gums, Mucous Membranes Moist Neck: NL Appearance and Movements; NL JVP, Trachea Midline Respiratory: Symmetrical Chest Expansion and Respiratory Effort, Clear to Auscultation Cardiovascular: NL Sounds; No Murmurs; No JVD, RRR Lymphatic: No Cervical Adenopathy Extremities: No Edema, No Clubbing, Cyanosis Skin: No Rash or Ulcers, No Nodules or Sclerosis Neurological: Alert and Oriented x 3, NL Muscle Strength and Tone Result Diagrams: 08/13/18 06:17 08/14/18 05:59 Additional Lab and Data: Lab Results 08/12/18 08/12/18 08/12/18 Range/Units 16:39 16:39 16:39 WBC 14.3 H (3.5-10.8) 10^3/ul RBC 5.39 (4.00-5.40) 10^6/ul Hgb 17.1 (14.0-18.0) g/dl Hct 50 (42-52) % MCV 92 (80-94) fL MCH 32 H (27-31) pg MCHC 35 (31-36) g/dl RDW 14 (10.5-15) % Plt Count 405 (150-450) 10^3/ul MPV 9.5 (7.4-10.4) fL Neut % (Auto) 61.9 % Lymph % (Auto) 24.9 % [place] % (Auto) 7.1 % Eos % (Auto) 5.8 % Baso % (Auto) 0.3 % Absolute Neuts (auto) 8.9 H (1.5-7.7) 10^3/ul Absolute Lymphs (auto) 3.6 (1.0-4.8) 10^3/ul Absolute Monos (auto) 1.0 H (0-0.8) 10^3/ul Absolute Eos (auto) 0.8 H (0-0.6) 10^3/ul Absolute Basos (auto) 0 (0-0.2) 10^3/ul Absolute Nucleated RBC 0 10^3/ul Nucleated RBC % 0.2 Sodium 134 L (135-145) mmol/L Potassium 3.9 (3.5-5.0) mmol/L Chloride 98 L (101-111) mmol/L Carbon Dioxide 27 (22-32) mmol/L Anion Gap 9 (2-11) mmol/L BUN 24 (6-24) mg/dL Creatinine 1.29 H (0.67-1.17) mg/dL Est GFR ( Amer) 68.5 (>60) Est GFR (Non-Af Amer) 56.6 (>60) BUN/Creatinine Ratio 18.6 (8-20) Glucose 287 H (70-100) mg/dL Lactic Acid 1.6 (0.5-2.0) mmol/L Calcium 9.5 (8.6-10.3) mg/dL Total Bilirubin 0.50 (0.2-1.0) mg/dL AST 25 (13-39) U/L ALT 29 (7-52) U/L Alkaline Phosphatase 104 (34-104) U/L Troponin I 0.11 H* (<0.04) ng/mL Total Protein 7.3 (6.4-8.9) g/dL Albumin 4.2 (3.2-5.2) g/dL Globulin 3.1 (2-4) g/dL Albumin/Globulin Ratio 1.4 (1-3) Assess/Plan/Problems-Billing Assessment: 62 yo M with h/o DM, HTN-not treated x 15 years presents sent from PCP with SBP 233 and LBBB on EKG - Patient Problems (1) Hypertensive urgency Comment: cont Coreg ans enalapril by cardiology cont hydralazine IV prn SBP's in 130's range (2) DM type 2 (diabetes mellitus, type 2) Comment: started on Lantus and ISS Will likely be able to go home on metformin and glipizide started on low dose glipizide 08/13/18, cannot start metformin till 3 days post cath (3) Elevated troponin Comment: likely demand ischemia Started on lipitor echo shows EF 20%, restrictive pattern cath 08/14/18 shows distal vessel disease and circ 65% For medical tx. Plavix started (4) LBBB (left bundle branch block) Comment: see above (5) Mediastinal lymphadenopathy Comment: nonspecific, to f/u as outpatient, pt asymptomatic from infectious standpoint (6) DVT prophylaxis Comment: HSQ Status and Disposition: inpatient
[2018-08-14] MEDS: Insulin GLARGINE(*) 1 UNITS UNIT SUBCUT SCH (15:39)
[2018-08-14] MEDS ORDERED: Carvedilol TAB* 6.25 MG PO ONE (16:28)
[2018-08-14] MEDS: Atorvastatin* 80 MG TAB PO SCH (20:43)
[2018-08-14] MEDS ORDERED: Carvedilol TAB* 6.25 MG PO SCH (21:00)
[2018-08-15] MEDS: Heparin VIAL(*) 5000 UNITS/ML VIAL (FIVE THOUSAND) SUBCUT SCH (05:05)
[2018-08-15 07:17] LABS: EGFR Non-African American 65.3 (>60)
--- NOTE | 2018-08-15 07:39 | PN ---
Subjective Date of Service: 08/15/18 Interval History: f/u CHF, LBBB cardiac catheterization yesterday showed diffuse diabetic cad, no critical lesions, possibly obstructive Lcx disease as per verbal conversation with Dr. Mai, LVEF has already recovered to at least 35% on LV gram in a short period of time with BP control Patient feels less fatigued today No dyspnea or cp BP now controlled tele: NSR, pvc's Medications Active Medications: Acetaminophen (Tylenol Tab*) 650 mg PO Q4H PRN PRN Reason: FEVER/PAIN Al Hydrox/Mg Hydrox/Simethicone (Maalox Plus*) 30 ml PO Q6H PRN PRN Reason: INDIGESTION Aspirin (Aspirin 81 Mg Chew Tab*) 81 mg PO DAILY [facility] Last Admin: 08/14/18 07:49 Dose: 81 mg Atorvastatin Calcium (Lipitor*) 80 mg PO 2100 [facility] Last Admin: 08/14/18 20:43 Dose: 80 mg Carvedilol (Coreg Tab*) 12.5 mg PO BID [facility] Clopidogrel Bisulfate (Plavix Tab*) 75 mg PO DAILY [facility] Last Admin: 08/14/18 12:21 Dose: 75 mg Dextrose (D50w Syringe 50 Ml*) 12.5 gm IV PUSH .FOR FS < 60 - SS PRN PRN Reason: FS < 60 Enalapril Maleate (Vasotec Tab*) 10 mg PO BID [facility] Glipizide (Glucotrol Tab*) 5 mg PO DAILY [facility] Heparin Sodium (Porcine) (Heparin Vial(*)) 5,000 units SUBCUT Q8HR [facility] Last Admin: 08/15/18 05:05 Dose: 5,000 units Hydralazine HCl (Apresoline Iv*) 5 mg IV SLOW PU Q6H PRN PRN Reason: BLOOD PRESSURE Last Admin: 08/14/18 03:26 Dose: 5 mg Insulin Glargine (Lantus(*)) 10 units SUBCUT Q24H [facility] Last Admin: 08/14/18 15:39 Dose: 10 units Insulin Human Lispro (Humalog*) 0 units SUBCUT [facility]; Protocol Last Admin: 08/14/18 17:26 Dose: 4 unit Insulin Human Lispro (Humalog*) 0 units SUBCUT [facility]; Protocol Last Admin: 08/14/18 17:27 Dose: 3 units Ondansetron HCl (Zofran Inj*) 4 mg IV Q4H PRN PRN Reason: NAUSEA/VOMITING Objective Vital Signs: Temp Pulse Resp BP Pulse Ox 98.0 F 80 20 136/80 98 08/15/18 03:52 08/15/18 03:52 08/15/18 03:52 08/15/18 03:52 08/15/18 03:52 Oxygen Devices in Use Now: None Appearance: nad, pleasant Ears/Nose/Mouth/Throat: Clear Oropharnyx, Mucous Membranes Moist Neck: Trachea Midline, - - uncertain jvp Respiratory: Symmetrical Chest Expansion and Respiratory Effort, Clear to Auscultation, - Cardiovascular: RRR, No Edema, - - no significant murmur Abdominal: - - soft, obese, non-tender Extremities: No Edema, No Clubbing, Cyanosis, - - right radial cath site no pain or swelling, hand well perfused Skin: No Rash or Ulcers Neurological: Alert and Oriented x 3 Laboratory Results: 08/13/18 06:17 08/15/18 06:47 INR (Anticoag Therapy) 1.03 (0.77-1.02) H 08/13/18 06:17 Total Bilirubin 0.50 mg/dL (0.2-1.0) 08/12/18 16:39 AST 25 U/L (13-39) 08/12/18 16:39 ALT 29 U/L (7-52) 08/12/18 16:39 Alkaline Phosphatase 104 U/L (34-104) 08/12/18 16:39 B-Natriuretic Peptide 461 pg/mL (<=100) H 08/12/18 16:39 Total Protein 7.3 g/dL (6.4-8.9) 08/12/18 16:39 Albumin 4.2 g/dL (3.2-5.2) 08/12/18 16:39 Globulin 3.1 g/dL (2-4) 08/12/18 16:39 Albumin/Globulin Ratio 1.4 (1-3) 08/12/18 16:39 Triglycerides 265 mg/dL 08/13/18 06:17 Cholesterol 176 mg/dL 08/13/18 06:17 LDL Cholesterol 90 mg/dL 08/13/18 06:17 HDL Cholesterol 32.8 mg/dL 08/13/18 06:17 TSH 2.96 mcIU/mL (0.34-5.60) 08/13/18 06:17 08/12/18 08/12/18 08/12/18 16:39 19:04 22:22 Troponin I 0.11 H* 0.11 H* 0.11 H* Diagnostic Imaging: RADIOGRAPHIC DATA: Chest, abdomen, and pelvis CTA 08/12/2018 no pulmonary embolus, no dissection or aneurysm, mildly enlarged heart, moderate coronary artery calcifications, small bilateral pleural effusions, mild interstitial septal thickening, nonspecific mediastinal and hilar lymphadenopathy, mild bronchial wall thickening. EKG showed sinus tach with a rate of 101 and left bundle-branch block. Echo 08/13/2018: Moderate LVH, LVEF 20-25%, moderate LA dilation, restrictive filling pattern EKG Data: EKG on admission: NSR, LAE, LBBB QRS > 150 ms Assessment/Plan 1. Systolic HF, LV cardiomyopathy - Compensated - Overall suspect mostly non-ischemic related to hypertension with early LV recovery with acute BP control from 20% to at least 35% and hopefully will continue to recover with appropriate medications and lifestyle modification - Will arrange for outpatient stress testing for ischemic component but continue medical treatment for now as below 2. LBBB 3. Obesity 4. HTN 5. DM 6. Sleep apnea, unable to tolerate CPAP - Continue aspirin 81 mg po daily - Continue plavix 75 mg po daily - Continue lipitor 80 mg po daily - Continue coreg, change to 12.5 mg po bid - Continue enalapril, change to 10 mg po bid - DM management as per Primary service - Counseled on weight loss and heart healthy diet - Advised he would benefit from a retrial of CPAP, possibly with different device - Needs BMP in 1 week - If otherwise remains stable patient can be discharged from a cardiac standpoint later today - Will arrange cardiology f/u in 2-3 weeks at [facility] Thank you for allowing me to participate in the cardiovascular care of this patient. Please do not hesitate to contact me with questions to concerns.
[2018-08-15] MEDS ORDERED: Carvedilol TAB* 6.25 MG PO SCH (09:00)
[2018-08-15] MEDS ORDERED: glipiZIDE TAB* 5 MG PO SCH ×2 (09:00)
[2018-08-15] MEDS ORDERED: Enalapril TAB* 5 MG PO SCH (09:00)
[2018-08-15] MEDS: Insulin LISPRO* 1 UNITS UNIT SUBCUT SCH ×2 (09:04)
[2018-08-15] MEDS: Aspirin 81 mg CHEW TAB* 81 MG TAB.CHEW PO SCH (09:05)
[2018-08-15] MEDS: Clopidogrel TAB* 75 MG PO SCH (09:05)
--- NOTE | 2018-08-15 09:38 | CATH ---
CC: Dr. Lance Ramachandran * CARDIAC CATHETERIZATION REPORT: DATE OF PROCEDURE: 08/14/18 - ROOM #443 INDICATION FOR THE PROCEDURE: Asked by Dr. Ramachandran to perform diagnostic cardiac catheterization on Mr. Fadi Toussaint in light of a cardiomyopathy with echocardiogram documenting a 20%-25% left ventricular ejection fraction globally , rule out the presence of significant proximal multivessel coronary artery disease. PROCEDURE: Coronary arteriography, left heart catheterization, left ventriculography. APPROACH: Right radial artery: The right radial artery was visualized by ultrasound in the floor of the hospital and found to be acceptable for an approach. PRECARDIAC CATHETERIZATION LABORATORY RESULTS: Hemoglobin and hematocrit of 16.6 and 48 with platelet count of 395,000. BUN 24, creatinine 1.1. Sodium 134 , potassium 3.7, chloride 100, and bicarb 25. EQUIPMENT UTILIZED: 1. The right radial artery sheath - a 6-Romanian Glidesheath. 2. The diagnostic coronary catheters - a 5-Romanian TIG 4 curve for the right coronary artery and a 5-Romanian FL4 curve for the left coronary artery. 3. The diagnostic guidewire - an exchanged-length Alexander curved guidewire. 4. The left heart catheterization catheter - a 5-Romanian PIG Performa radial catheter. MEDICATIONS GIVEN DURING THE PROCEDURE: 1. 0.5 mg Versed. 2. Oxygen by nasal cannula. DESCRIPTION OF THE PROCEDURE: The patient was interviewed and examined on the floor of the hospital where the risks and benefits were explained. He understood them and wished to proceed. He was brought to the cardiovascular laboratory where a formal time-out was performed. He was prepped and draped in a sterile fashion and under ultrasound guidance, the right radial artery area was entered and a sheath was placed. Diagnostic coronary catheterization was performed, following this central aortic pressure was recorded using the pigtail catheter advanced to the ascending aorta. The catheter was then passed across the aortic valve into the left ventricle where the left ventricular pressure was recorded. Left ventriculography was performed utilizing a total of 28 mL of Omnipaque dye at a rate of 14 mL per second. The catheter was then pulled back across the aortic valve to recheck gradient. At the end of the case , the films were reviewed, the catheter was removed, and the sheath was removed , and hemostasis was obtained with a Vasc Band. The reverse Barbeau was found to be a B. The patient tolerated the procedure well. The total contrast used was 150 mL of Omnipaque dye. The radiation exposure included 8.4 minutes of fluoro time. The air kerma was 2283 milligray, the DAP radiation was 14,343 microgray/sq. m. RESULTS: HEMODYNAMIC DATA: Left heart catheterization - ascending aortic pressure was 117/69 with mean of 91. Left ventricular pressure was 124, the left ventricular end diastolic pressure of 25. LEFT VENTRICULOGRAPHY: performed in the WORKMAN projection revealed severe hypokinesis- akinesis of the distal inferior and apical region. There was global hypokinesis to the other regions. The overall ejection fraction was estimated at 35% to 40%. No significant mitral regurgitation was noted. CORONARY ARTERIOGRAPHY: A. Right coronary artery - a dominant vessel supplying the PDA and a thin first and second posterior left ventricular branch and a larger size last bifurcating posterior ventricular branch. There were several thin acute marginal branches noted. There was a proximal narrowing in the right coronary artery of 30% to 35%. The midportion of the artery had mild disease of 25%. After the artery turned onto the inferior surface of the heart, the proximal portion of the posterior descending artery had a narrowing that appeared to be 30% to 35%. The mid portion of the posterior descending artery had a narrowing of 75% to 80%. It was in a somewhat small caliber area. This was followed by a distal lesion of 60% and an extremely small caliber area. The continuation of the right coronary artery revealed the distal bifurcating posterior left ventricular branch, had narrowings in the area just past the bifurcation in both the lateral and the medial branch of the arteries, the degree of narrowing in the lateral branch being more significant at 75% to 80%. Of note, the caliber vessels extremely small less than 1.7 cm. More proximally in that vessel was a narrowing of 60% to 65%, diffuse in nature, in the proximal to mid portion. B. Left coronary artery: 1. Left main - there is mild 20% narrowing in distal left main. 2. The left anterior descending artery - the left anterior descending artery had diffuse disease seen throughout its course. The first diagonal branch with a very small caliber vessel with proximal narrowing of 50% to 60%, the caliber of the vessel is clearly less than or equal to 1.7 mm. The second diagonal branch, it was somewhat smaller caliber vessel and had a critical 90% proximal stenosis followed by a second 90% stenosis. The continuation of the left anterior descending artery had [id number] diffuse disease with the distal portion of the vessel having a stenosis of approximately 70%. This was before the artery turned onto the apical region onto the distal inferior wall. 3. Circumflex artery - a nondominant vessel supplying a bifurcation marginal branch, which had diffuse long proximal narrowing of 40% to 45%. There were several very thin obtuse marginal branches leading to a moderate size obtuse marginal branch which descends along the low posterolateral wall extending to the posterolateral apical region. The proximal portion of this artery had an excentric lesion that appeared to be approximately 65%, somewhat excentric in nature. The more proximal portion of the circumflex artery had a 35% to 40% narrowing. OVERALL ASSESSMENT: Diffuse multivessel disease in several small caliber areas of vessel. The degree of stenosis found in the location seemed to be out of proportion for such diffuse hypokinesis and severe left ventricular systolic dysfunction. Of note, since the time of echocardiogram, on medical management for his blood pressure with beta nataliia and angiotensin-converting enzyme inhibitor, his left ventricular function has already started improving. This information was shared with Dr. Lance Ramachandran, his primary account assistant, who will consider ongoing medical management and an ischemic workup to look whether or not there is focal ischemia noted to these areas once left ventricular function has hopefully continued to improve. [id number]/[facility] #: [id number] MTDD
[2018-08-15 12:09] VITALS: BP 139/81
--- NOTE | 2018-08-16 03:14 | DS ---
DISCHARGE SUMMARY: DATE OF ADMISSION: 08/12/18 DATE OF DISCHARGE: 08/15/18 ADMITTING PROVIDER: Nicole Zabala DO. PRIMARY CARE PHYSICIAN: Danny Omer of [facility] (recently established on the day of admission). CONSULTING TECH INTERN: Dr. Lance Ramachandran. CONSULTING FREIGHT CONDUCTOR: Dr. Juan Mai. ATTENDING PHYSICIAN ON THE DAY OF DISCHARGE: Pedro Arnold MD. CHIEF COMPLAINT: Hypertensive readings and abnormal EKG during employment physical. Orthopnea. Reflux like chest pain. PRINCIPAL DIAGNOSES: Severe diffuse coronary artery disease; hypertensive urgency; severe diabetes mellitus type 2 (new diagnosis). HISTORY OF PRESENT ILLNESS AND HOSPITAL COURSE: Fadi Toussaint is a 62-year- old male with past medical history of lack of medical followup for at least 15 years with previous time diagnosis of hypertension and prediabetes, not taking any medications, who followed up for employment physical with [employer] on the day of admission. He was noticed to have very elevated blood pressures and a left bundle- branch block on EKG. He was [place] [facility]. Please see [facility] and P of Nicole Zabala for full details. He reported that he had no chest pain other than reflux at night, did describe orthopnea. Denied lower extremity edema. He had lost 30 pounds over +5 years mostly intentional. He later described increased frequency of urination over the last 4 months and all troponins were 0.11 x3. His glucose was high 200s and A1c would result at 11.8. BNP was 461. He received cardiology consult and echo with Dr. Lance Ramachandran. A transthoracic echocardiogram was obtained on 08/12/18, which showed ejection fraction of 20% to 25% with left ventricular septal wall motion abnormality possibly due to left bundle branch block, abnormal left ventricular diastolic function with severe restrictive pattern was observed. Left atrium moderately dilated. Right ventricular systolic function mildly reduced. Global hypokinesis with minor regional variation, unable to estimate RVSP. No significant valvular abnormalities. Dr. Ramachandran elicited that he was previously seen by Dr. Byers for Cardiology about 4 years ago, had been previously on Procardia and Hyzaar but he had missed followup appointments and not been on any medications since then. The patient had been started on Lipitor 80. Beta- blockers were changed from metoprolol to Coreg. He was given IV Lasix 10 mg x1 and then enalapril b.i.d. He was referred to Dr. Mai for cardiac catheterization, which was performed on 08/12/18. Results of left heart catheterization, left main mild 20% narrowing distally, LAD diffuse disease throughout course, first diagonal, very small caliber vessel with 50% to 60%, proximal narrowing second diagonal with critical 90% proximal stenosis followed by second 90% stenosis. The LAD had mild-to- moderate diffuse disease with distal vessel having 70% stenosis. Circumflex nondominant vessel supplying a bifurcation marginal branch with diffuse long proximal narrowing of 40% to 45%, several very thin obtuse marginal branches leading to a moderate size obtuse marginal branch. along the low posterior wall extending to the posterolateral apical region. Proximal portion had eccentric lesion that appeared to be approximately 65%, somewhat eccentric in nature. The more proximal portion of the circumflex artery had 35% to 40% narrowing. Overall assessment was diffuse multivessel disease in several small caliber areas of vessel. The degree of stenosis seemed to be out of proportionate with severe diffuse hypokinesis and LV dysfunction. His LV gram noted to improve to 35% to 40% with only one day of medical management and plan was to repeat echocardiogram and potential stress test as an outpatient after medical optimization. The patient was managed with insulin in the hospital, but given financial constraints, he was going to be started on cardiac and diabetic medications through [employer] reduced summers 4 dollar/10 dollar list. He was medically stable for discharge without any anginal type symptoms. DISCHARGE MEDICATIONS: Include: 1. Aspirin 81 mg daily. 2. Atorvastatin 80 mg daily. 3. Carvedilol 12.5 mg p.o. b.i.d. 4. Plavix 75 mg daily. 5. Enalapril 10 mg p.o. b.i.d. 6. Glipizide 5 mg p.o. daily. 7. Metformin 500 mg p.o. b.i.d. (with planned titration up in the next weeks). 8. Free style glucometer with lancets and test strips to be recorded b.i.d. fasting and before dinner. These are all new medications. DISCHARGE DIET: Heart healthy, carbohydrate consistent (new). ACTIVITY LEVEL: He had a 5-pound lifting restriction for the first 3 days for his right radial access site, avoid excessive moisture to the accident site for 5 days including dish washing, bath tubs, and swimming. Avoid flexing the wrist for 3 days, example, typing, hammering, tennis. FOLLOWUP: He is going to follow up with Lance Ramachandran, new outpatient spin tank tender, in the [place] office within approximately 2 weeks. He was referred to [facility] for diabetic education. He should follow up with his new primary care provider, Dr. Danny Omer of [facility] within the next 7 days. He seemed to be motivated to make lifestyle changes given the "close call". TIME SPENT: On discharge, 40 minutes. [id number]/[facility] #: [id number] PIO
== END 2018-08-15 14:45 | disposition home or self-care (01) | DRG 287 ==
LOC: ED 15:27 → MEDTELE 20:48
PROVIDERS: ADMIT Pediatrics; ATTEND Internal Medicine
PROC: 4A023N7 Measurement of Cardiac Sampling and Pressure, Left Heart, Percutaneous Approach (ICD-10-PCS; principal; 2018-08-14)
PROC: B211YZZ Fluoroscopy of Multiple Coronary Arteries using Other Contrast (ICD-10-PCS; 2018-08-14)
PROC: B215YZZ Fluoroscopy of Left Heart using Other Contrast (ICD-10-PCS; 2018-08-14)
DX: I16.0 Hypertensive urgency (principal); N17.9 Acute kidney failure, unspecified; I50.20 Unspecified systolic (congestive) heart failure; I42.9 Cardiomyopathy, unspecified; I25.10 Atherosclerotic heart disease of native coronary artery without angina pectoris; I11.0 Hypertensive heart disease with heart failure; E11.65 Type 2 diabetes mellitus with hyperglycemia; I44.7 Left bundle-branch block, unspecified; K58.9 Irritable bowel syndrome, unspecified; R06.01 Orthopnea; R74.8 Abnormal levels of other serum enzymes; E66.9 Obesity, unspecified; G47.30 Sleep apnea, unspecified; Z68.31 Body mass index [BMI] 31.0-31.9, adult; Z81.2 Family history of tobacco abuse and dependence; Z82.3 Family history of stroke
CPT/HCPCS: 36415; 71046; 71275; 74174; 80048; 80053; 80061; 83036; 83605; 83735; 83880; 84443; 84484; 85025; 85610; 90686; 93005; 93306; 93458; 99284; A9270-GY; J0360; J1644; J1940; J2250; J3010; J3475; J3490; Q9967